=== PATIENT | female | born 2000 | race African-American/Black ===

== ENCOUNTER 2021-01-16 03:43 | Day surgery (SDC) | payer OTHER ==
[2021-01-16 04:22] VITALS: BMI 44.6
[2021-01-16 04:56] LABS: Bilirubin Neg (Negative); Blood, Urine 10 (Negative); Clarity Slightly Cloudy (Clear); Glucose, Urine (Dipstick) Normal (Negative); Ketone, Urine Negative (Negative); Leukocyte Negative (Negative); Nitrite Negative (Negative); Protein, Urine (Dipstick) Negative (Neg-Trace); Urobilinogen Normal mg/dL (Less than 2)
[2021-01-16 05:07] LABS: Bacteria/HPF None Seen HPF (None Seen); RBC/HPF 0-3 HPF (0-3); Squamous Epithelial 0-3 HPF (0-3); Transitional Epithelial 0-3 HPF (None Seen); Urine Culture Reflex No No; WBC/HPF 0-3 HPF (0-3)
[2021-01-16 05:42] LABS: #Eosinphils 0.4 10x3/uL (0.0-0.5); #Monocytes 0.7 10x3/uL (0.0-1.1); #Neutrophils 5.7 10x3/uL (1.5-8.4); %Basophils 0.3 % (0.0-2.0); %Eosinophils 4.2 % (0.0-6.0); %Lymphocytes 25.2 % (18.0-47.0); %Monocytes 7.2 % (0.0-10.0); %Neutrophils 62.3 % (40.0-75.0); Hemoglobin 11.7 g/dL (12.0-15.5); Mean Corpuscular HGB CONC 32.1 g/dL (32.0-36.0); Mean Corpuscular Hemoglobin 28.5 pg (27.0-33.0); Mean Corpuscular Volume 88.8 fl (81.6-98.3); Mean Platelet Volume 9.7 fl (7.4-10.4); Platelet Count 197 10x3/uL (150-450); RBC Distribution Width 12.9 % (11.5-14.5); Red Blood Cell (RBC) Count 4.11 10x6/uL (3.90-5.03); White Blood Cell (WBC) Count 9.2 10x3/uL (3.5-10.5)
[2021-01-16 05:54] LABS: ALT (SGPT) 17 U/L (8-55); AST (SGOT) 9 U/L (5-34); Albumin 3.4 g/dL (3.5-5.0); Alkaline Phosphatase 60 U/L (40-110); Anion Gap 12 mmol/L (10-20); BUN (Urea Nitrogen) 13 mg/dL (7.0-18.7); Bilirubin, Total 0.2 mg/dL (0.2-1.2); Calc. Creatinine Clearance 207 mL/min (70-130); Calcium 9.1 mg/dL (7.8-10.44); Carbon Dioxide 25 mmol/L (22-29); Chloride 104 mmol/L (98-107); Globulin 3.5 g/dL (2.4-3.5); Glucose 89 mg/dL (70-105); Potassium 4.1 mmol/L (3.5-5.1); Protein, Total 6.9 g/dL (6.0-8.3); Sodium 137 mmol/L (136-145)
[2021-01-16] MEDS ORDERED: hydrALAZINE 20 MG/ML VIAL SLOW IVP PRN (06:34)
== END 2021-01-16 06:50 | disposition home health service (06) ==
LOC: CSHLD/OP 03:43
PROVIDERS: ATTEND Family Medicine
DX: O26.892 Other specified pregnancy related conditions, second trimester (principal); R10.2 Pelvic and perineal pain; M54.5 Low back pain; R10.13 Epigastric pain; Z3A.20 20 weeks gestation of pregnancy; Z79.82 Long term (current) use of aspirin
CPT/HCPCS: 36415; 51701; 80053; 81001; 85025; 99282

== ENCOUNTER 2022-04-15 08:50 | Emergency (ER) | payer OTHER ==
[2022-04-15 09:48] LABS: #Eosinphils 0.4 10x3/uL (0.0-0.5); #Monocytes 0.4 10x3/uL (0.0-1.1); %Basophils 0.5 % (0.0-2.0); %Eosinophils 6.4 % (0.0-6.0); %Lymphocytes 29.7 % (18.0-47.0); %Monocytes 6.2 % (0.0-10.0); Hemoglobin 9.4 g/dL (12.0-15.5); Mean Corpuscular HGB CONC 29.9 g/dL (32.0-36.0); Mean Corpuscular Hemoglobin 21.1 pg (27.0-33.0); Mean Corpuscular Volume 70.6 fl (81.6-98.3); Mean Platelet Volume 9.5 fl (7.4-10.4); Platelet Count 406 10x3/uL (150-450); RBC Distribution Width 15.7 % (11.5-14.5); Red Blood Cell (RBC) Count 4.45 10x6/uL (3.90-5.03); White Blood Cell (WBC) Count 5.7 10x3/uL (3.5-10.5)
[2022-04-15 09:51] LABS: #Neutrophils 3.2 10x3/uL (1.5-8.4); %Neutrophils 57.2 % (40.0-75.0)
[2022-04-15 09:55] LABS: BHCG - Serum Negative (NEGATIVE); Pregs Control Bar Appear? YES (CONTROL BAR)
[2022-04-15 09:56] LABS: Pregs Control Background? CLEAR/WHITE (CLR/WHITE)
[2022-04-15 10:02] LABS: ALT (SGPT) 15 U/L (8-55); AST (SGOT) 14 U/L (5-34); Albumin 4.1 g/dL (3.5-5.0); Alkaline Phosphatase 85 U/L (40-110); Anion Gap 14 mmol/L (10-20); BUN (Urea Nitrogen) 13 mg/dL (7.0-18.7); Bilirubin, Total 0.2 mg/dL (0.2-1.2); Calc. Creatinine Clearance 0 mL/min (70-130); Calcium 9.9 mg/dL (7.8-10.44); Carbon Dioxide 24 mmol/L (22-29); Chloride 103 mmol/L (98-107); Globulin 4.3 g/dL (2.4-3.5); Glucose 95 mg/dL (70-105); Magnesium 1.6 mg/dL (1.6-2.6); Potassium 4.1 mmol/L (3.5-5.1); Protein, Total 8.4 g/dL (6.0-8.3); Sodium 137 mmol/L (136-145)
[2022-04-15 10:08] LABS: Hypochromia SLIGHT = 6-15 cells (100X) (0-5/hpf); Microcytosis SLIGHT = 6-15 cells (100X) (0-5/hpf); Platelet Morphology Comment Appears Adequate
[2022-04-15 10:38] LABS: SARS-CoV-2 NAA Rapid Test Not Detected (NotDetected)
[2022-04-15] MEDS ORDERED: Iopamidol 370 76% 100 ML VIAL ONE (10:38)
[2022-04-15] MEDS ORDERED: Midazolam HCl 2 mg/2 ml Vial ONE (11:24)
[2022-04-15] MEDS ORDERED: Fentanyl 100 MCG/2 ML VIAL ONE (11:24)
== END 2022-04-15 13:51 | disposition home or self-care (01) ==
LOC: CSHERS 08:50
DX: J06.9 Acute upper respiratory infection, unspecified (principal); R06.02 Shortness of breath; Z20.822 Contact with and (suspected) exposure to COVID-19
CPT/HCPCS: 36415; 71045; 71275; 80053; 83735; 83880; 84703; 85025; 85379; 93005; J2250; J3010; Q9967

== ENCOUNTER 2022-06-10 19:49 | Emergency (ER) | payer BC, OTHER ==
[2022-06-10 20:17] LABS: Bilirubin Neg (Negative); Blood, Urine 50 (Negative); Clarity Cloudy (Clear); Glucose, Urine (Dipstick) Normal (Negative); Ketone, Urine Negative (Negative); Leukocyte 500 (Negative); Nitrite Positive (Negative); Protein, Urine (Dipstick) 30 mg/dl (Neg-Trace); pH, Urine 6.5 (5.0-9.0)
[2022-06-10 20:20] LABS: Pregnancy Test - Urine (BHCG) Negative (Negative); Pregu Control Background? CLEAR/WHITE (CLR/WHITE); Pregu Control Bar Appear? YES (CONTROL BAR)
[2022-06-10 20:38] LABS: WBC/HPF Greater than 50 HPF (0-3)
[2022-06-10 20:39] LABS: Bacteria/HPF 3+ HPF (None Seen)
[2022-06-10] MEDS ORDERED: Ketorolac Tromethamine 30 MG/ML VIAL ONE (20:39)
[2022-06-10] MEDS ORDERED: cefTRIAXone\\ROCEPHIN 2 GM VIAL ONE (20:39)
[2022-06-10 20:41] LABS: Mucous/LPF 1+ LPF (<2+)
[2022-06-10 21:00] LABS: #Eosinphils 0.1 10x3/uL (0.0-0.5); #Monocytes 0.8 10x3/uL (0.0-1.1); #Neutrophils 4.6 10x3/uL (1.5-8.4); %Basophils 0.2 % (0.0-2.0); %Eosinophils 1.2 % (0.0-6.0); %Lymphocytes 31.8 % (18.0-47.0); %Monocytes 9.8 % (0.0-10.0); %Neutrophils 56.6 % (40.0-75.0); Hemoglobin 8.1 g/dL (12.0-15.5); Mean Corpuscular HGB CONC 29.1 g/dL (32.0-36.0); Mean Corpuscular Volume 68.5 fl (81.6-98.3); Mean Platelet Volume 9.9 fl (7.4-10.4); Platelet Count 336 10x3/uL (150-450); RBC Distribution Width 17.4 % (11.5-14.5); Red Blood Cell (RBC) Count 4.06 10x6/uL (3.90-5.03); White Blood Cell (WBC) Count 8.2 10x3/uL (3.5-10.5)
[2022-06-10 21:14] LABS: ALT (SGPT) 22 U/L (8-55); AST (SGOT) 23 U/L (5-34); Albumin 3.6 g/dL (3.5-5.0); Alkaline Phosphatase 77 U/L (40-110); Anion Gap 12 mmol/L (10-20); BUN (Urea Nitrogen) 10 mg/dL (7.0-18.7); Bilirubin, Total 0.4 mg/dL (0.2-1.2); Calc. Creatinine Clearance 0 mL/min (70-130); Calcium 9.4 mg/dL (7.8-10.44); Carbon Dioxide 25 mmol/L (22-29); Chloride 103 mmol/L (98-107); Estimated GFR 105; Globulin 3.8 g/dL (2.4-3.5); Glucose 97 mg/dL (70-105); Potassium 3.9 mmol/L (3.5-5.1); Protein, Total 7.4 g/dL (6.0-8.3); Sodium 136 mmol/L (136-145)
== END 2022-06-10 23:55 | disposition home or self-care (01) ==
LOC: CSHERS 19:49
DX: N10 Acute pyelonephritis (principal)
CPT/HCPCS: 80053; 81003; 81015; 81025; 83605; 85025; 87077; 87086; 93005; 96361; 96365; 96375; J0696; J1885

== ENCOUNTER 2022-06-29 08:13 | Emergency (ER) | payer BC, OTHER ==
[2022-06-29] MEDS ORDERED: Dexamethasone 10 MG/ML VIAL ONE (10:22)
== END 2022-06-29 10:20 | disposition home or self-care (01) ==
LOC: CSHERS 08:13
DX: J06.9 Acute upper respiratory infection, unspecified (principal); Z20.822 Contact with and (suspected) exposure to COVID-19
CPT/HCPCS: 87081; 87430; 99283; J1100; U0003; U0005

== ENCOUNTER 2023-05-09 18:58 | Emergency (ER) | payer OTHER ==
[2023-05-09] MEDS ORDERED: Lidocaine/Transparent Dressing 1 EACH KIT ONE (19:45)
== END 2023-05-09 19:51 | disposition home or self-care (01) ==
LOC: CSHERS 18:58
DX: T23.142A Burn of first degree of multiple left fingers (nail), including thumb, initial encounter (principal); X15.3XXA Contact with hot saucepan or skillet, initial encounter
CPT/HCPCS: 99283